=== PATIENT | female | born 1960 | race Caucasian/White ===

== ENCOUNTER 2023-11-24 15:53 | Emergency (ER) | payer OTHER ==
[~2023-11-24] VITALS: Ht 160 cm; Wt 61.2 kg
[~2023-11-24 15:53] MED LIST: CLONAZEPAM1 MG PO; GABAPENTIN300 MG PO; METFORMIN HCL500 MG PO; METOPROLOL SUCC25 MG PO; NORCO 10MG-325MG1 EA PO; SYMBICORT 16010.2 GM INH; VENLAFAXINE HCL75 M2 PO
[2023-11-24] MEDS: DIAZEPAM 2 MG TAB PO ONE (16:26)
[2023-11-24] MEDS: MECLIZINE HCL 12.5 MG TAB PO ONE (16:26)
[2023-11-24 16:56] LABS: BASOPHILS % 0.3 % (0.0-1.0); EOSINOPHILS # (AUTO) 0.1 (0.0-0.4); EOSINOPHILS % 0.6 % (0.0-6.0); HEMATOCRIT 46.1 % (34.2-44.1); HEMOGLOBIN 15.8 g/dL (12.0-16.0); LYMPHOCYTES # (AUTO) 2.5 (1.0-3.2); LYMPHOCYTES % 18.1 % (18.0-39.1); MEAN CORPUSCULAR HEMOGLOBIN 30.2 pg (28-32); MEAN CORPUSCULAR HGB CONC 34.3 g/dL (31-35); MEAN CORPUSCULAR VOLUME 88.1 fL (81-99); MONOCYTES # (AUTO) 0.7 (0.2-0.8); MONOCYTES % 5.1 % (4.4-11.3); NEUTROPHILS # (AUTO) 10.6 (2.1-6.9); NEUTROPHILS % 75.4 % (38.7-80.0); PLATELET COUNT 312 x10e3/uL (140-360); RED BLOOD COUNT 5.23 x10e6/uL (3.6-5.1); RED CELL DISTRIBUTION WIDTH 13.7 % (11.7-14.4)
[2023-11-24 16:59] LABS: INR 0.87; PROTHROMBIN TIME 12.5 seconds (11.9-14.5)
[2023-11-24 17:00] LABS: PARTIAL THROMBOPLASTIN TIME 29.7 seconds (23.8-35.5)
[2023-11-24 17:10] LABS: ALANINE AMINOTRANSFERASE 28 IU/L (0-55); ALBUMIN 4.3 g/dL (3.5-5.0); ALBUMIN/GLOBULIN RATIO 1.1 (0.8-2.0); ALKALINE PHOSPHATASE 125 IU/L (40-150); ANION GAP 18.4 mmol/L (8-16); BILIRUBIN,TOTAL 0.4 mg/dL (0.2-1.2); BLOOD UREA NITROGEN 13 mg/dL (7-26); BUN/CREATININE RATIO 18 (6-25); CARBON DIOXIDE 19 mmol/L (22-29); CHLORIDE 108 mmol/L (98-107); CREATINE KINASE 62 IU/L (29-168); CREATININE, SERUM 0.71 mg/dL (0.57-1.11); EST GLOMERULAR FILTRATION RATE 96 ML/MIN (>=60); GLUCOSE 99 mg/dL (74-118); POTASSIUM 4.4 mmol/L (3.5-5.1); SODIUM 141 mmol/L (136-145); TOTAL PROTEIN 8.3 g/dL (6.5-8.1)
[2023-11-24 17:33] LABS: TROPONIN I < 0.001 ng/mL (0-0.300)
[2023-11-24] MEDS ORDERED: MECLIZINE HCL12.5 MG PO (18:05)
[2023-11-24] MEDS: ACETAMINOPHEN/CODEINE 300MG - 30MG TAB PO ONE (18:10)
[2023-11-24 18:34] VITALS: O2SAT 95
== END 2023-11-24 18:39 | disposition home or self-care (01) ==
LOC: ER 16:00 → EDSEX 16:00 → ER 18:39
DX: R42 Dizziness and giddiness (principal); M54.9 Dorsalgia, unspecified; G89.29 Other chronic pain; R11.0 Nausea; R94.31 Abnormal electrocardiogram [ECG] [EKG]
CPT/HCPCS: 36415; 71045; 80053; 82550; 83735; 84484; 85025; 85379; 85610; 85730; 93005; 99285; J8597